=== PATIENT | male | born 1960 | race Caucasian/White ===

== ENCOUNTER 2020-05-01 01:12 | Inpatient (IN) | payer MEDICAID ==
[~2020-05-01] VITALS: Ht 177.8 cm; Wt 74.4 kg
[2020-05-01] MEDS ORDERED: ACETAMINOPHEN 325MG TABLET GT STA (01:39)
[2020-05-01 02:03] LABS: BASOPHILS % 0.6 % (0.0-2.0); EOSINOPHILS % 0.3 % (0.0-5.0); HEMATOCRIT. 27.6 % (42.0-52.0); HEMOGLOBIN. 9.3 g/dL (14.0-18.0); LYMPHOCYTES % 11.5 % (20.0-50.0); MEAN CORPUSCULAR HEMOGLOBIN 29.6 pg (28.0-32.0); MEAN CORPUSCULAR VOLUME 87.7 fL (80.0-94.0); MEAN PLATELET VOLUME 7.7 fl (7.4-10.4); MONOCYTES % 11.6 % (2.0-8.0); PLATELET 393 x1000/uL (130-400); RED BLOOD CELL COUNT 3.15 mill/uL (4.7-6.1); RED CELL DISTRIBUTION WIDTH 15.3 % (11.6-14.6)
[2020-05-01 02:10] LABS: CHLORIDE 101 mEq/L (98-107)
[2020-05-01 02:17] LABS: INR 1.2; PROTHROMBIN TIME 12.5 sec (9.6-11.0)
[2020-05-01] MEDS ORDERED: IOHEXOL-300 100 ML BOTTLE ONE (02:39)
[2020-05-01] MEDS ORDERED: VANCOMYCIN 1 G PREMIX 200 ML IV SCH (03:45)
[2020-05-01] MEDS ORDERED: PIPERACILLIN/TAZOBACTAM 3.375GM/50ML PREMIX IV SCH (03:45)
[2020-05-01] MEDS ORDERED: ENOXAPARIN 80MG/0.8ML SYR SUBCUT SCH (04:00)
[2020-05-01] MEDS ORDERED: NA PHOS,M-B/NA PHOS,DI-BA ENEMA 118ML PR SCH (04:00)
[2020-05-01 05:57] LABS: CLARITY URINE CLOUDY (CLEAR); COLOR URINE DARK YELLOW (YELLOW); KETONES URINE 1+ (NEGATIVE); LEUKOCYTE ESTERASE URINE 3+ (NEGATIVE); NITRITE URINE NEGATIVE (NEGATIVE); OCCULT BLOOD URINE 1+ (NEGATIVE); PH URINE 8.5 (4.5-8.0); PROTEIN URINE 2+ (NEGATIVE); SPECIFIC GRAVITY URINE 1.024 (1.005-1.030)
[2020-05-01 11:36] VITALS: BP 98/53
[2020-05-01] MEDS ORDERED: ONDANSETRON HCL 4MG/2ML INJ IV PRN (12:15)
[2020-05-01] MEDS: DOCUSATE SODIUM 250MG CAPSULE PO SCH (16:07)
[2020-05-01] MEDS: ACETAMINOPHEN 325MG TABLET PO PRN (16:07)
[2020-05-01] MEDS: PIPERACILLIN/TAZOBACTAM 3.375 G in DEXT 5% WATER 100 ML IV SCH ×2 (16:08→21:46)
[2020-05-01] MEDS: VANCOMYCIN 750 MG PREMIX 150 ML IV SCH (16:59)
[2020-05-01] MEDS ORDERED: LACTULOSE 20G/30ML UDC PO PRN (17:30)
[2020-05-01] MEDS ORDERED: CHOL40002 PO (19:18)
[2020-05-01] MEDS ORDERED: DIPH25CA83 PO (19:18)
[2020-05-01] MEDS ORDERED: ACET-2128 PO (19:18)
[2020-05-01] MEDS ORDERED: RIVA20TA PO (19:18)
[2020-05-01] MEDS ORDERED: MIRT15TA6 PO (19:18)
[2020-05-01] MEDS ORDERED: FAMO20TA8 PO (19:18)
[2020-05-01] MEDS ORDERED: ATOR40TA70 PO (19:18)
[2020-05-01] MEDS ORDERED: MIDO5TAB4 PO (19:18)
[2020-05-01] MEDS ORDERED: DOCU50LI25 PO (19:18)
[2020-05-01 20:00] VITALS: BP 97/59
[2020-05-02] VITALS: BP 97/59
[2020-05-02] MEDS: VANCOMYCIN 750 MG PREMIX 150 ML IV SCH ×4 (00:04→23:08)
[2020-05-02] MEDS: ACETAMINOPHEN 325MG TABLET PO PRN ×2 (00:05→10:00)
[2020-05-02] MEDS: PIPERACILLIN/TAZOBACTAM 3.375 G in DEXT 5% WATER 100 ML IV SCH ×4 (01:55→19:59)
[2020-05-02 04:00] VITALS: BP 98/50
[2020-05-02 08:16] LABS: BASOPHILS % 0.5 % (0.0-2.0); LYMPHOCYTES % 18.6 % (20.0-50.0); MEAN CORPUSCULAR HEMOGLOBIN 30.2 pg (28.0-32.0); MEAN CORPUSCULAR VOLUME 87.7 fL (80.0-94.0); MEAN PLATELET VOLUME 8.1 fl (7.4-10.4); MONOCYTES % 14.3 % (2.0-8.0); NEUTROPHILS % 66.6 % (40.0-76.0); PLATELET 339 x1000/uL (130-400); RED BLOOD CELL COUNT 2.97 mill/uL (4.7-6.1); RED CELL DISTRIBUTION WIDTH 15.2 % (11.6-14.6)
[2020-05-02 08:20] LABS: CHLORIDE 100 mEq/L (98-107)
[2020-05-02] MEDS ORDERED: POTASSIUM CHLORIDE 20MEQ TABLET SR PO NR (08:45)
[2020-05-02] MEDS: ENOXAPARIN 40MG/0.4ML SYR SUBCUT SCH (09:00)
[2020-05-02] MEDS: DOCUSATE SODIUM 250MG CAPSULE PO SCH (10:00)
[2020-05-02 12:00] VITALS: BP 110/59
[2020-05-02 16:00] VITALS: BP 96/48
[2020-05-02 20:00] VITALS: BP 105/46
[2020-05-03] VITALS: BP 108/55
[2020-05-03] MEDS: PIPERACILLIN/TAZOBACTAM 3.375 G in DEXT 5% WATER 100 ML IV SCH ×4 (03:57→21:00)
[2020-05-03 04:00] VITALS: BP 111/58
[2020-05-03] MEDS: VANCOMYCIN 750 MG PREMIX 150 ML IV SCH (06:10)
[2020-05-03 06:17] LABS: BASOPHILS % 0.3 % (0.0-2.0); EOSINOPHILS % 0.1 % (0.0-5.0); HEMATOCRIT. 26.2 % (42.0-52.0); LYMPHOCYTES % 13.3 % (20.0-50.0); MEAN CORPUSCULAR HEMOGLOBIN 29.8 pg (28.0-32.0); MEAN PLATELET VOLUME 8.3 fl (7.4-10.4); NEUTROPHILS % 78.3 % (40.0-76.0); PLATELET 282 x1000/uL (130-400); RED BLOOD CELL COUNT 3.01 mill/uL (4.7-6.1); RED CELL DISTRIBUTION WIDTH 15.5 % (11.6-14.6)
[2020-05-03 06:23] LABS: CHLORIDE 103 mEq/L (98-107)
[2020-05-03 08:00] VITALS: BP 150/60
[2020-05-03] MEDS ORDERED: POTASSIUM CHLORIDE INJ 40 MEQ in DEXT 5% WATER 250 ML IV NR (09:00)
[2020-05-03] MEDS: ENOXAPARIN 40MG/0.4ML SYR SUBCUT SCH (09:00)
[2020-05-03] MEDS: DOCUSATE SODIUM 250MG CAPSULE PO SCH ×2 (09:00→09:06)
[2020-05-03 12:00] VITALS: BP 152/66
[2020-05-03] MEDS ORDERED: POTASSIUM CHLORIDE 20MEQ TABLET SR PO NR (13:30)
[2020-05-03] MEDS: ACETAMINOPHEN 325MG TABLET PO PRN (14:00)
[2020-05-03 16:00] VITALS: BP 114/54
[2020-05-03 20:00] VITALS: BP 98/48
[2020-05-03] MEDS: VANCOMYCIN 1 G PREMIX 200 ML IV SCH (23:29)
[2020-05-04] VITALS: BP 138/64
[2020-05-04] MEDS: PIPERACILLIN/TAZOBACTAM 3.375 G in DEXT 5% WATER 100 ML IV SCH ×4 (01:27→20:03)
[2020-05-04 04:00] VITALS: BP_SYST 121; BP_SYST 124; BP_DIAS 60; BP_DIAS 66
[2020-05-04 08:00] VITALS: BP 145/62
[2020-05-04 08:11] LABS: BASOPHILS % 0.4 % (0.0-2.0); EOSINOPHILS % 0.2 % (0.0-5.0); HEMATOCRIT. 26.7 % (42.0-52.0); HEMOGLOBIN. 9.2 g/dL (14.0-18.0); LYMPHOCYTES % 20.1 % (20.0-50.0); MEAN CORPUSCULAR HEMOGLOBIN 29.9 pg (28.0-32.0); MEAN CORPUSCULAR VOLUME 87.3 fL (80.0-94.0); MEAN PLATELET VOLUME 8.6 fl (7.4-10.4); MONOCYTES % 7.8 % (2.0-8.0); NEUTROPHILS % 71.5 % (40.0-76.0); PLATELET 215 x1000/uL (130-400); RED BLOOD CELL COUNT 3.06 mill/uL (4.7-6.1); RED CELL DISTRIBUTION WIDTH 15.4 % (11.6-14.6)
[2020-05-04 08:33] LABS: CHLORIDE 104 mEq/L (98-107)
[2020-05-04] MEDS: DOCUSATE SODIUM 250MG CAPSULE PO SCH (09:16)
[2020-05-04] MEDS: ENOXAPARIN 40MG/0.4ML SYR SUBCUT SCH (09:16)
[2020-05-04 12:00] VITALS: BP 129/60
[2020-05-04 16:00] VITALS: BP 126/60
[2020-05-04] MEDS: VANCOMYCIN 1 G PREMIX 200 ML IV SCH (16:44)
[2020-05-04 20:00] VITALS: BP 101/52
[2020-05-05] VITALS: BP 138/64
[2020-05-05] MEDS: PIPERACILLIN/TAZOBACTAM 3.375 G in DEXT 5% WATER 100 ML IV SCH ×4 (02:32→20:05)
[2020-05-05 04:00] VITALS: BP 118/68
[2020-05-05 08:00] VITALS: BP 103/54
[2020-05-05] MEDS: DOCUSATE SODIUM 250MG CAPSULE PO SCH (11:22)
[2020-05-05] MEDS: ENOXAPARIN 40MG/0.4ML SYR SUBCUT SCH (11:22)
[2020-05-05 12:00] VITALS: BP 115/67
[2020-05-05] MEDS: VANCOMYCIN 750 MG PREMIX 150 ML IV SCH (14:07)
[2020-05-05 16:00] VITALS: BP 123/59
[2020-05-05 20:00] VITALS: BP 99/51
[2020-05-05 21:22] LABS: CHLORIDE 106 mEq/L (98-107)
[2020-05-05 21:24] LABS: BASOPHILS % 0.8 % (0.0-2.0); EOSINOPHILS % 0.8 % (0.0-5.0); HEMATOCRIT. 26.2 % (42.0-52.0); HEMOGLOBIN. 8.9 g/dL (14.0-18.0); LYMPHOCYTES % 36.7 % (20.0-50.0); MEAN CORPUSCULAR HEMOGLOBIN 29.8 pg (28.0-32.0); MEAN CORPUSCULAR VOLUME 87.7 fL (80.0-94.0); MEAN PLATELET VOLUME 9.3 fl (7.4-10.4); MONOCYTES % 10.3 % (2.0-8.0); NEUTROPHILS % 51.4 % (40.0-76.0); PLATELET 183 x1000/uL (130-400); RED BLOOD CELL COUNT 2.99 mill/uL (4.7-6.1); RED CELL DISTRIBUTION WIDTH 15.6 % (11.6-14.6)
[2020-05-06] VITALS: BP 117/55
[2020-05-06] MEDS: PIPERACILLIN/TAZOBACTAM 3.375 G in DEXT 5% WATER 100 ML IV SCH ×2 (01:54→09:36)
[2020-05-06 04:00] VITALS: BP 95/50
[2020-05-06 08:00] VITALS: BP 100/55
[2020-05-06] MEDS: ENOXAPARIN 40MG/0.4ML SYR SUBCUT SCH ×2 (09:36→10:02)
[2020-05-06] MEDS: DOCUSATE SODIUM 250MG CAPSULE PO SCH ×2 (09:36→09:37)
[2020-05-06] MEDS: VANCOMYCIN 750 MG PREMIX 150 ML IV SCH (09:59)
[2020-05-06 12:00] VITALS: BP 97/50
[2020-05-06 16:00] VITALS: BP 122/70
[2020-05-06] MEDS ORDERED: NYSTATIN POWDER 15GM TOP SCH (18:00)
[2020-05-06 20:00] VITALS: BP 133/78
[2020-05-07] VITALS: BP 139/71
[2020-05-07] MEDS: NYSTATIN POWDER 15GM TOP SCH ×3 (00:01→17:00)
[2020-05-07] MEDS: VANCOMYCIN 750 MG PREMIX 150 ML IV SCH ×2 (01:47→21:45)
[2020-05-07 04:00] VITALS: BP 101/60
[2020-05-07 06:32] LABS: BASOPHILS % 0.5 % (0.0-2.0); EOSINOPHILS % 2.7 % (0.0-5.0); HEMOGLOBIN. 10.5 g/dL (14.0-18.0); LYMPHOCYTES % 31.1 % (20.0-50.0); MEAN CORPUSCULAR HEMOGLOBIN 29.8 pg (28.0-32.0); MEAN PLATELET VOLUME 9.2 fl (7.4-10.4); MONOCYTES % 7.5 % (2.0-8.0); NEUTROPHILS % 58.2 % (40.0-76.0); PLATELET 208 x1000/uL (130-400); RED BLOOD CELL COUNT 3.52 mill/uL (4.7-6.1); RED CELL DISTRIBUTION WIDTH 15.6 % (11.6-14.6)
[2020-05-07 06:58] LABS: CHLORIDE 108 mEq/L (98-107)
[2020-05-07 08:00] VITALS: BP 133/78
[2020-05-07] MEDS: ZINC SULFATE 220 MG ( 50 ) CAPSULE PO SCH (08:13)
[2020-05-07] MEDS: ASCORBIC ACID 500 MG TABLET PO SCH (08:13)
[2020-05-07 12:00] VITALS: BP 139/71
[2020-05-07] MEDS ORDERED: POTASSIUM CHLORIDE 20MEQ TABLET SR PO SCH (12:00)
[2020-05-07 16:00] VITALS: BP 127/73
[2020-05-08] VITALS: BP 101/47
[2020-05-08 04:00] VITALS: BP 90/49
[2020-05-08 08:00] VITALS: BP 94/51
[2020-05-08] MEDS: NYSTATIN POWDER 15GM TOP SCH (09:00)
[2020-05-08 09:08] LABS: CHLORIDE 108 mEq/L (98-107)
[2020-05-08 09:33] LABS: BASOPHILS % 0.3 % (0.0-2.0); EOSINOPHILS % 0.6 % (0.0-5.0); LYMPHOCYTES % 21.9 % (20.0-50.0); MEAN CORPUSCULAR HEMOGLOBIN 30.3 pg (28.0-32.0); MEAN CORPUSCULAR VOLUME 86.5 fL (80.0-94.0); MEAN PLATELET VOLUME 9.4 fl (7.4-10.4); MONOCYTES % 11.6 % (2.0-8.0); NEUTROPHILS % 65.6 % (40.0-76.0); PLATELET 207 x1000/uL (130-400); RED BLOOD CELL COUNT 2.91 mill/uL (4.7-6.1); RED CELL DISTRIBUTION WIDTH 15.5 % (11.6-14.6)
[2020-05-08 10:30] LABS: HEMATOCRIT. 25.2 % (42.0-52.0); HEMOGLOBIN. 8.8 g/dL (14.0-18.0)
[2020-05-08] MEDS: ENOXAPARIN 40MG/0.4ML SYR SUBCUT SCH (10:40)
[2020-05-08] MEDS: DOCUSATE SODIUM 250MG CAPSULE PO SCH (10:41)
[2020-05-08] MEDS: ASCORBIC ACID 500 MG TABLET PO SCH (10:41)
[2020-05-08] MEDS: ZINC SULFATE 220 MG ( 50 ) CAPSULE PO SCH (10:41)
[2020-05-08] MEDS ORDERED: LIDOCAINE HCL/EPINEPHRINE 1%-EPI 1:100,000 20 ML VIAL INFIL NR (13:00)
[2020-05-08] MEDS ORDERED: SILVER NITRATE APPLICATOR STICK TOP NR (13:00)
[2020-05-08] MEDS ORDERED: VANCOMYCIN 1 G PREMIX 200 ML IV SCH (14:00)
[2020-05-08] MEDS: VANCOMYCIN 750 MG PREMIX 150 ML IV SCH (15:41)
[2020-05-08 16:00] VITALS: BP 109/60
[2020-05-08 20:00] VITALS: BP 118/64
[2020-05-09] VITALS: BP 118/71
[2020-05-09 04:00] VITALS: BP 92/36
[2020-05-09 08:00] VITALS: BP 103/43
[2020-05-09] MEDS: DOCUSATE SODIUM 250MG CAPSULE PO SCH (08:48)
[2020-05-09] MEDS: ZINC SULFATE 220 MG ( 50 ) CAPSULE PO SCH (08:48)
[2020-05-09] MEDS: ASCORBIC ACID 500 MG TABLET PO SCH (08:48)
[2020-05-09] MEDS: ENOXAPARIN 40MG/0.4ML SYR SUBCUT SCH (08:49)
[2020-05-09] MEDS: NYSTATIN POWDER 15GM TOP SCH ×2 (09:26→16:47)
[2020-05-09 11:48] VITALS: BP 114/56
[2020-05-09] MEDS ORDERED: ZINC220C2 PO (12:46)
[2020-05-09] MEDS ORDERED: SODI473S22 TOP (12:46)
[2020-05-09] MEDS: SODIUM HYPOCHLORITE 0.125% 473ML SOLUTION TOP SCH (12:54)
[2020-05-09 16:00] VITALS: BP 93/55
[2020-05-09 17:09] LABS: HEMATOCRIT 27.9 % (42.0-52.0); HEMOGLOBIN 9.4 g/dL (14.0-18.0); MEAN CORPUSCULAR HEMOGLOBIN 29.7 pg (28.0-32.0); MEAN CORPUSCULAR VOLUME 87.7 fL (80.0-94.0); PLATELET 242 x1000/uL (130-400); RED BLOOD CELL COUNT 3.18 mill/uL (4.7-6.1)
[2020-05-09 17:21] LABS: CHLORIDE 108 mEq/L (98-107)
[2020-05-10] VITALS: BP 122/59
[2020-05-10 04:00] VITALS: BP 104/57
[2020-05-10 06:09] LABS: BASOPHILS % 0.2 % (0.0-2.0); EOSINOPHILS % 1.1 % (0.0-5.0); HEMATOCRIT. 26.6 % (42.0-52.0); MEAN CORPUSCULAR HEMOGLOBIN 29.4 pg (28.0-32.0); MEAN CORPUSCULAR VOLUME 86.4 fL (80.0-94.0); MEAN PLATELET VOLUME 9.1 fl (7.4-10.4); MONOCYTES % 10.3 % (2.0-8.0); NEUTROPHILS % 77.4 % (40.0-76.0); PLATELET 243 x1000/uL (130-400); RED BLOOD CELL COUNT 3.08 mill/uL (4.7-6.1); RED CELL DISTRIBUTION WIDTH 15.7 % (11.6-14.6)
[2020-05-10 06:25] LABS: CHLORIDE 108 mEq/L (98-107)
[2020-05-10 08:00] VITALS: BP 121/69
[2020-05-10] MEDS: DOCUSATE SODIUM 250MG CAPSULE PO SCH (08:59)
[2020-05-10] MEDS: ASCORBIC ACID 500 MG TABLET PO SCH (08:59)
[2020-05-10] MEDS: ZINC SULFATE 220 MG ( 50 ) CAPSULE PO SCH (08:59)
[2020-05-10] MEDS: ENOXAPARIN 40MG/0.4ML SYR SUBCUT SCH (08:59)
[2020-05-10] MEDS: SODIUM HYPOCHLORITE 0.125% 473ML SOLUTION TOP SCH (09:00)
[2020-05-10] MEDS: NYSTATIN POWDER 15GM TOP SCH ×2 (09:01→16:34)
[2020-05-10 12:00] VITALS: BP 95/48
[2020-05-10 16:00] VITALS: BP 119/59
[2020-05-10 20:00] VITALS: BP 135/60
[2020-05-11] VITALS: BP 135/62
[2020-05-11 04:00] VITALS: BP 146/64
[2020-05-11] MEDS: ACETAMINOPHEN 325MG TABLET PO PRN ×2 (04:52→12:08)
[2020-05-11 07:33] LABS: BASOPHILS % 0.2 % (0.0-2.0); EOSINOPHILS % 1.5 % (0.0-5.0); HEMATOCRIT. 24.9 % (42.0-52.0); HEMOGLOBIN. 8.4 g/dL (14.0-18.0); LYMPHOCYTES % 11.4 % (20.0-50.0); MEAN CORPUSCULAR HEMOGLOBIN 29.7 pg (28.0-32.0); MEAN CORPUSCULAR VOLUME 88.4 fL (80.0-94.0); MEAN PLATELET VOLUME 9.5 fl (7.4-10.4); MONOCYTES % 10.4 % (2.0-8.0); NEUTROPHILS % 76.5 % (40.0-76.0); PLATELET 237 x1000/uL (130-400); RED BLOOD CELL COUNT 2.82 mill/uL (4.7-6.1); RED CELL DISTRIBUTION WIDTH 15.9 % (11.6-14.6)
[2020-05-11 08:00] VITALS: BP 113/60
[2020-05-11] MEDS: NYSTATIN POWDER 15GM TOP SCH ×2 (09:00→17:00)
[2020-05-11] MEDS: ENOXAPARIN 40MG/0.4ML SYR SUBCUT SCH ×2 (09:00→10:21)
[2020-05-11] MEDS: ZINC SULFATE 220 MG ( 50 ) CAPSULE PO SCH (10:21)
[2020-05-11] MEDS: DOCUSATE SODIUM 250MG CAPSULE PO SCH (10:21)
[2020-05-11] MEDS: ASCORBIC ACID 500 MG TABLET PO SCH (10:21)
[2020-05-11] MEDS: SODIUM HYPOCHLORITE 0.125% 473ML SOLUTION TOP SCH (10:35)
[2020-05-11 12:00] VITALS: BP 90/51
[2020-05-11 16:00] VITALS: BP 162/66
[2020-05-11] MEDS: HYDROCODONE/ACETAMINOPHEN 5/325MG TABLET GT PRN ×2 (16:46→22:36)
[2020-05-11 20:00] VITALS: BP 132/89
[2020-05-11] MEDS ORDERED: LIDOCAINE HCL 1% 20ML VIAL (Pyxis) INJ INFIL NR (21:00)
[2020-05-11] MEDS ORDERED: METHYLPREDNISOLONE ACETATE 40MG/ML VIAL IM NR (22:00)
[2020-05-12] VITALS: BP 166/79
[2020-05-12 04:00] VITALS: BP 126/67
[2020-05-12] MEDS: HYDROCODONE/ACETAMINOPHEN 5/325MG TABLET GT PRN (05:49)
[2020-05-12 08:00] VITALS: BP 147/74
[2020-05-12] MEDS: NYSTATIN POWDER 15GM TOP SCH ×2 (09:00→17:00)
[2020-05-12] MEDS: ASCORBIC ACID 500 MG TABLET PO SCH (10:03)
[2020-05-12] MEDS: ZINC SULFATE 220 MG ( 50 ) CAPSULE PO SCH (10:03)
[2020-05-12] MEDS: ENOXAPARIN 40MG/0.4ML SYR SUBCUT SCH (10:03)
[2020-05-12] MEDS: DOCUSATE SODIUM SUGAR FREE 100MG/10ML UDC GT SCH (10:04)
[2020-05-12] MEDS: SODIUM HYPOCHLORITE 0.125% 473ML SOLUTION TOP SCH (10:15)
[2020-05-12 12:00] VITALS: BP 148/88
[2020-05-12 16:00] VITALS: BP 106/65
[2020-05-12 20:00] VITALS: BP_SYST 140; BP_DIAS 71; BP_DIAS 91
[2020-05-12] MEDS: ACETAMINOPHEN 325MG TABLET PO PRN (20:06)
[2020-05-13] VITALS: BP 125/70
[2020-05-13 04:00] VITALS: BP 134/64
[2020-05-13 08:00] VITALS: BP 131/72
[2020-05-13] MEDS: ZINC SULFATE 220 MG ( 50 ) CAPSULE PO SCH (08:53)
[2020-05-13] MEDS: DOCUSATE SODIUM SUGAR FREE 100MG/10ML UDC GT SCH (08:53)
[2020-05-13] MEDS: ASCORBIC ACID 500 MG TABLET PO SCH (08:53)
[2020-05-13] MEDS: SODIUM HYPOCHLORITE 0.125% 473ML SOLUTION TOP SCH (08:55)
[2020-05-13] MEDS: NYSTATIN POWDER 15GM TOP SCH ×2 (08:55→17:00)
[2020-05-13] MEDS: ENOXAPARIN 40MG/0.4ML SYR SUBCUT SCH (09:00)
[2020-05-13 12:00] VITALS: BP_SYST 119; BP_SYST 145; BP_DIAS 54; BP_DIAS 71
[2020-05-13 16:00] VITALS: BP 119/54
[2020-05-13 20:00] VITALS: BP 148/67
[2020-05-14] VITALS (7 sets, daily range): BP systolic 94–175; BP diastolic 54–77
[2020-05-14] MEDS: DOCUSATE SODIUM SUGAR FREE 100MG/10ML UDC GT SCH (09:00)
[2020-05-14] MEDS: ZINC SULFATE 220 MG ( 50 ) CAPSULE PO SCH (09:00)
[2020-05-14] MEDS: NYSTATIN POWDER 15GM TOP SCH ×2 (09:00→22:10)
[2020-05-14] MEDS: ASCORBIC ACID 500 MG TABLET PO SCH (09:00)
[2020-05-14] MEDS: SODIUM HYPOCHLORITE 0.125% 473ML SOLUTION TOP SCH (09:00)
[2020-05-14] MEDS: ENOXAPARIN 40MG/0.4ML SYR SUBCUT SCH (09:00)
[2020-05-15 00:12] VITALS: BP 98/56
[2020-05-15 04:00] VITALS: BP 89/42
[2020-05-15] MEDS: ZINC SULFATE 220 MG ( 50 ) CAPSULE PO SCH (10:51)
[2020-05-15] MEDS: ASCORBIC ACID 500 MG TABLET PO SCH (10:51)
[2020-05-15] MEDS: ENOXAPARIN 40MG/0.4ML SYR SUBCUT SCH (10:51)
[2020-05-15] MEDS: NYSTATIN POWDER 15GM TOP SCH ×2 (10:57→18:17)
[2020-05-15] MEDS: DOCUSATE SODIUM SUGAR FREE 100MG/10ML UDC GT SCH (13:32)
[2020-05-15] MEDS: SODIUM HYPOCHLORITE 0.125% 473ML SOLUTION TOP SCH (18:16)
[2020-05-15 20:00] VITALS: BP 106/58
[2020-05-16] VITALS (10 sets, daily range): BP systolic 71–141; BP diastolic 48–77
[2020-05-16] MEDS: DOCUSATE SODIUM SUGAR FREE 100MG/10ML UDC GT SCH (08:59)
[2020-05-16] MEDS: ZINC SULFATE 220 MG ( 50 ) CAPSULE PO SCH (08:59)
[2020-05-16] MEDS: ASCORBIC ACID 500 MG TABLET PO SCH (08:59)
[2020-05-16] MEDS: ENOXAPARIN 40MG/0.4ML SYR SUBCUT SCH (09:00)
[2020-05-16] MEDS: SODIUM HYPOCHLORITE 0.125% 473ML SOLUTION TOP SCH (10:25)
[2020-05-16] MEDS: NYSTATIN POWDER 15GM TOP SCH ×2 (10:25→17:58)
[2020-05-16] MEDS: ACETAMINOPHEN 325MG TABLET PO PRN ×2 (11:01→22:26)
[2020-05-16 20:01] LABS: BASOPHILS % 0.3 % (0.0-2.0); EOSINOPHILS % 0.4 % (0.0-5.0); HEMOGLOBIN. 9.2 g/dL (14.0-18.0); LYMPHOCYTES % 8.7 % (20.0-50.0); MEAN CORPUSCULAR HEMOGLOBIN 29.8 pg (28.0-32.0); MEAN CORPUSCULAR VOLUME 87.1 fL (80.0-94.0); MEAN PLATELET VOLUME 8.8 fl (7.4-10.4); MONOCYTES % 3.7 % (2.0-8.0); NEUTROPHILS % 86.9 % (40.0-76.0); PLATELET 300 x1000/uL (130-400); RED CELL DISTRIBUTION WIDTH 16.4 % (11.6-14.6)
[2020-05-16 20:10] LABS: CHLORIDE 109 mEq/L (98-107)
[2020-05-16] MEDS ORDERED: ZOLPIDEM TARTRATE 5MG TABLET PO PRN (22:30)
[2020-05-16] MEDS ORDERED: DEXAMETHASONE 4MG/ML 1ML VIAL IV SCH (23:00)
[2020-05-17] VITALS: BP 100/70
[2020-05-17] MEDS: AZITHROMYCIN 500 MG in DEXT 5% WATER 250 ML IV SCH (00:58)
[2020-05-17 04:00] VITALS: BP 128/80
[2020-05-17 08:00] VITALS: BP 101/60
[2020-05-17] MEDS: ASCORBIC ACID 500 MG TABLET PO SCH (09:16)
[2020-05-17] MEDS: DOCUSATE SODIUM SUGAR FREE 100MG/10ML UDC GT SCH (09:16)
[2020-05-17] MEDS: ZINC SULFATE 220 MG ( 50 ) CAPSULE PO SCH (09:16)
[2020-05-17] MEDS: ENOXAPARIN 40MG/0.4ML SYR SUBCUT SCH (09:16)
[2020-05-17 12:00] VITALS: BP 123/75
[2020-05-17 16:00] VITALS: BP 129/54
[2020-05-17] MEDS: NYSTATIN POWDER 15GM TOP SCH (18:03)
[2020-05-17] MEDS: SODIUM HYPOCHLORITE 0.125% 473ML SOLUTION TOP SCH (18:03)
[2020-05-17 20:00] VITALS: BP 124/64
[2020-05-18] VITALS: BP 105/56
[2020-05-18] MEDS: AZITHROMYCIN 500 MG in DEXT 5% WATER 250 ML IV SCH (00:44)
[2020-05-18 04:00] VITALS: BP 115/58
[2020-05-18 08:00] VITALS: BP 137/71
[2020-05-18] MEDS: ENOXAPARIN 40MG/0.4ML SYR SUBCUT SCH (08:26)
[2020-05-18] MEDS: ASCORBIC ACID 500 MG TABLET PO SCH (08:26)
[2020-05-18] MEDS: ZINC SULFATE 220 MG ( 50 ) CAPSULE PO SCH (08:26)
[2020-05-18] MEDS: DOCUSATE SODIUM SUGAR FREE 100MG/10ML UDC GT SCH (08:27)
[2020-05-18] MEDS: NYSTATIN POWDER 15GM TOP SCH ×2 (08:29→17:49)
[2020-05-18] MEDS: SODIUM HYPOCHLORITE 0.125% 473ML SOLUTION TOP SCH (08:29)
[2020-05-18 12:00] VITALS: BP 128/73
[2020-05-18 16:00] VITALS: BP 134/70
[2020-05-18 20:00] VITALS: BP 128/58
[2020-05-18] MEDS ORDERED: AZITHROMYCIN 500 MG TABLET PO SCH (21:00)
[2020-05-19] VITALS: BP 90/53
[2020-05-19 04:00] VITALS: BP 85/45
[2020-05-19 08:00] VITALS: BP 116/58
[2020-05-19] MEDS: NYSTATIN POWDER 15GM TOP SCH ×2 (09:35→17:00)
[2020-05-19] MEDS: SODIUM HYPOCHLORITE 0.125% 473ML SOLUTION TOP SCH (09:35)
[2020-05-19] MEDS: ENOXAPARIN 40MG/0.4ML SYR SUBCUT SCH (09:47)
[2020-05-19] MEDS: ASCORBIC ACID 500 MG TABLET PO SCH (09:48)
[2020-05-19] MEDS: DOCUSATE SODIUM SUGAR FREE 100MG/10ML UDC GT SCH (09:48)
[2020-05-19] MEDS: ZINC SULFATE 220 MG ( 50 ) CAPSULE PO SCH (09:48)
[2020-05-19 12:00] VITALS: BP 130/60
[2020-05-19 16:00] VITALS: BP 100/56
[2020-05-19 20:00] VITALS: BP 101/59
[2020-05-20] VITALS: BP 103/56
[2020-05-20 04:00] VITALS: BP 109/58
[2020-05-20 08:00] VITALS: BP 110/55
[2020-05-20] MEDS: ZINC SULFATE 220 MG ( 50 ) CAPSULE PO SCH (09:00)
[2020-05-20] MEDS: NYSTATIN POWDER 15GM TOP SCH ×2 (09:00→17:00)
[2020-05-20] MEDS: SODIUM HYPOCHLORITE 0.125% 473ML SOLUTION TOP SCH (09:00)
[2020-05-20] MEDS: ENOXAPARIN 40MG/0.4ML SYR SUBCUT SCH (10:13)
[2020-05-20] MEDS: DOCUSATE SODIUM SUGAR FREE 100MG/10ML UDC GT SCH (10:14)
[2020-05-20] MEDS: ASCORBIC ACID 500 MG TABLET PO SCH (10:23)
[2020-05-20 12:00] VITALS: BP 99/58
[2020-05-20 16:00] VITALS: BP 97/50
[2020-05-20 20:00] VITALS: BP 109/61
[2020-05-21] VITALS: BP 132/51
[2020-05-21 04:00] VITALS: BP 147/72
[2020-05-21 08:00] VITALS: BP 150/73
[2020-05-21] MEDS: ZINC SULFATE 220 MG ( 50 ) CAPSULE PO SCH (08:49)
[2020-05-21] MEDS: DOCUSATE SODIUM SUGAR FREE 100MG/10ML UDC GT SCH (08:49)
[2020-05-21] MEDS: ASCORBIC ACID 500 MG TABLET PO SCH (08:49)
[2020-05-21] MEDS: ENOXAPARIN 40MG/0.4ML SYR SUBCUT SCH (08:50)
[2020-05-21] MEDS: NYSTATIN POWDER 15GM TOP SCH ×2 (08:53→17:09)
[2020-05-21] MEDS: SODIUM HYPOCHLORITE 0.125% 473ML SOLUTION TOP SCH (08:53)
[2020-05-21 12:00] VITALS: BP 162/74
[2020-05-21] MEDS: CLONIDINE 0.1MG TABLET PO PRN (14:27)
[2020-05-21 16:00] VITALS: BP 129/72
[2020-05-21 20:00] VITALS: BP 161/73
[2020-05-22] VITALS: BP 156/72
[2020-05-22 04:00] VITALS: BP 118/79
[2020-05-22 08:00] VITALS: BP 135/76
[2020-05-22] MEDS: ASCORBIC ACID 500 MG TABLET PO SCH (09:17)
[2020-05-22] MEDS: ZINC SULFATE 220 MG ( 50 ) CAPSULE PO SCH (09:17)
[2020-05-22] MEDS: DOCUSATE SODIUM SUGAR FREE 100MG/10ML UDC GT SCH (09:17)
[2020-05-22] MEDS: ENOXAPARIN 40MG/0.4ML SYR SUBCUT SCH (09:17)
[2020-05-22] MEDS: NYSTATIN POWDER 15GM TOP SCH ×2 (09:18→17:14)
[2020-05-22] MEDS: SODIUM HYPOCHLORITE 0.125% 473ML SOLUTION TOP SCH (09:18)
[2020-05-22 12:00] VITALS: BP 147/75
[2020-05-22 16:00] VITALS: BP 140/62
[2020-05-22 20:00] VITALS: BP 179/74
[2020-05-23] VITALS: BP 163/79
[2020-05-23] MEDS: CLONIDINE 0.1MG TABLET PO PRN (03:09)
[2020-05-23 04:00] VITALS: BP 142/77
[2020-05-23 08:00] VITALS: BP 108/72
[2020-05-23] MEDS: DOCUSATE SODIUM SUGAR FREE 100MG/10ML UDC GT SCH (11:09)
[2020-05-23] MEDS: ZINC SULFATE 220 MG ( 50 ) CAPSULE PO SCH (11:10)
[2020-05-23] MEDS: ASCORBIC ACID 500 MG TABLET PO SCH (11:10)
[2020-05-23] MEDS: ENOXAPARIN 40MG/0.4ML SYR SUBCUT SCH (11:11)
[2020-05-23] MEDS: NYSTATIN POWDER 15GM TOP SCH ×2 (11:12→17:37)
[2020-05-23] MEDS: SODIUM HYPOCHLORITE 0.125% 473ML SOLUTION TOP SCH (11:12)
[2020-05-23 12:00] VITALS: BP 124/73
[2020-05-23 16:00] VITALS: BP 115/71
[2020-05-23 19:57] LABS: CHLORIDE 110 mEq/L (98-107)
[2020-05-23 20:00] VITALS: BP 102/64
[2020-05-23 20:14] LABS: HEMATOCRIT. 27.2 % (42.0-52.0); MEAN CORPUSCULAR HEMOGLOBIN 29.4 pg (28.0-32.0); MEAN PLATELET VOLUME 8.3 fl (7.4-10.4); PLATELET 250 x1000/uL (130-400); RED BLOOD CELL COUNT 3.06 mill/uL (4.7-6.1); RED CELL DISTRIBUTION WIDTH 16.8 % (11.6-14.6)
[2020-05-23 22:42] LABS: PLATELET ESTIMATE NORMAL
[2020-05-24] VITALS: BP 121/76
[2020-05-24 04:00] VITALS: BP 115/62
[2020-05-24 08:00] VITALS: BP 84/49
[2020-05-24 12:00] VITALS: BP 109/61
[2020-05-24] MEDS: ASCORBIC ACID 500 MG TABLET PO SCH (12:00)
[2020-05-24] MEDS: ZINC SULFATE 220 MG ( 50 ) CAPSULE PO SCH (12:00)
[2020-05-24] MEDS: ENOXAPARIN 40MG/0.4ML SYR SUBCUT SCH (12:00)
[2020-05-24] MEDS: DOCUSATE SODIUM SUGAR FREE 100MG/10ML UDC GT SCH (12:00)
[2020-05-24] MEDS: SODIUM HYPOCHLORITE 0.125% 473ML SOLUTION TOP SCH (12:00)
[2020-05-24] MEDS: NYSTATIN POWDER 15GM TOP SCH ×2 (12:01→17:00)
[2020-05-24 16:00] VITALS: BP 115/80
[2020-05-24 20:00] VITALS: BP 110/59
[2020-05-25] VITALS: BP 100/61
[2020-05-25 04:00] VITALS: BP 125/74
[2020-05-25 08:00] VITALS: BP 93/57
[2020-05-25] MEDS: ASCORBIC ACID 500 MG TABLET PO SCH (09:00)
[2020-05-25] MEDS: DOCUSATE SODIUM SUGAR FREE 100MG/10ML UDC GT SCH (10:02)
[2020-05-25] MEDS: ENOXAPARIN 40MG/0.4ML SYR SUBCUT SCH (10:02)
[2020-05-25] MEDS: ZINC SULFATE 220 MG ( 50 ) CAPSULE PO SCH (10:02)
[2020-05-25] MEDS: NYSTATIN POWDER 15GM TOP SCH ×2 (10:03→18:50)
[2020-05-25] MEDS: SODIUM HYPOCHLORITE 0.125% 473ML SOLUTION TOP SCH (10:03)
[2020-05-25 12:00] VITALS: BP 117/70
[2020-05-25 16:00] VITALS: BP 121/62
[2020-05-25 20:00] VITALS: BP 114/63
[2020-05-26] VITALS: BP 94/41
[2020-05-26 08:00] VITALS: BP 121/54
[2020-05-26] MEDS: NYSTATIN POWDER 15GM TOP SCH ×2 (09:00→18:23)
[2020-05-26] MEDS: ZINC SULFATE 220 MG ( 50 ) CAPSULE PO SCH (09:47)
[2020-05-26] MEDS: ENOXAPARIN 40MG/0.4ML SYR SUBCUT SCH (09:47)
[2020-05-26] MEDS: DOCUSATE SODIUM SUGAR FREE 100MG/10ML UDC GT SCH (09:47)
[2020-05-26] MEDS: ASCORBIC ACID 500 MG TABLET PO SCH (09:47)
[2020-05-26 12:00] VITALS: BP 148/71
[2020-05-26 16:00] VITALS: BP 147/67
[2020-05-26] MEDS: SODIUM HYPOCHLORITE 0.125% 473ML SOLUTION TOP SCH (18:22)
[2020-05-26 20:00] VITALS: BP 158/62
[2020-05-27] VITALS: BP 136/85
[2020-05-27 04:00] VITALS: BP 96/62
[2020-05-27 08:00] VITALS: BP 80/46
[2020-05-27] MEDS: ZINC SULFATE 220 MG ( 50 ) CAPSULE PO SCH (10:01)
[2020-05-27] MEDS: DOCUSATE SODIUM SUGAR FREE 100MG/10ML UDC GT SCH (10:01)
[2020-05-27] MEDS: ENOXAPARIN 40MG/0.4ML SYR SUBCUT SCH (10:02)
[2020-05-27] MEDS: SODIUM HYPOCHLORITE 0.125% 473ML SOLUTION TOP SCH (10:02)
[2020-05-27] MEDS: NYSTATIN POWDER 15GM TOP SCH ×2 (10:03→17:51)
[2020-05-27] MEDS: ASCORBIC ACID 500 MG TABLET PO SCH (11:05)
[2020-05-27 12:00] VITALS: BP 91/53
[2020-05-27 16:00] VITALS: BP 98/65
[2020-05-27 20:00] VITALS: BP 94/58
[2020-05-28] VITALS: BP 103/67
[2020-05-28 04:00] VITALS: BP 107/68
[2020-05-28 06:56] LABS: CHLORIDE 112 mEq/L (98-107)
[2020-05-28 07:10] LABS: HEMATOCRIT. 25.4 % (42.0-52.0); HEMOGLOBIN. 8.3 g/dL (14.0-18.0); MEAN CORPUSCULAR HEMOGLOBIN 29.1 pg (28.0-32.0); MEAN CORPUSCULAR VOLUME 88.7 fL (80.0-94.0); MEAN PLATELET VOLUME 9.3 fl (7.4-10.4); PLATELET 203 x1000/uL (130-400); RED BLOOD CELL COUNT 2.86 mill/uL (4.7-6.1); RED CELL DISTRIBUTION WIDTH 17.1 % (11.6-14.6)
[2020-05-28 08:00] VITALS: BP 96/52
[2020-05-28] MEDS: ZINC SULFATE 220 MG ( 50 ) CAPSULE PO SCH (09:00)
[2020-05-28] MEDS: ASCORBIC ACID 500 MG TABLET PO SCH (10:37)
[2020-05-28] MEDS: ENOXAPARIN 40MG/0.4ML SYR SUBCUT SCH (10:38)
[2020-05-28] MEDS: DOCUSATE SODIUM SUGAR FREE 100MG/10ML UDC GT SCH (10:38)
[2020-05-28] MEDS: NYSTATIN POWDER 15GM TOP SCH ×2 (11:45→16:16)
[2020-05-28] MEDS: SODIUM HYPOCHLORITE 0.125% 473ML SOLUTION TOP SCH (11:45)
[2020-05-28 12:00] VITALS: BP 101/62
[2020-05-28] MEDS ORDERED: ALBUTEROL (0.083%) 2.5MG/3ML NEB HHN SCH (12:15)
[2020-05-28] MEDS ORDERED: ACETYLCYSTEINE 100MG/ML 10% VIAL 4ML INH SCH (14:00)
[2020-05-28 16:37] LABS: BG BASE EXCESS -2.2 mmol/L (-2.0-2.0); BG CARBOXYHEMOGLOBIN 0.3 % (0.5-1.5); BG FRACTION INSPIRED OXYGEN 35; BG HCO3 ACT 22.5 mmol/L (22.0-26.0); BG METHEMOGLOBIN 0.3 % (0.0-1.5); BG OXYHEMOGLOBIN 92.4 % (94.0-97.0); BG PCO2 38.2 mmHg (35.0-45.0); BG PH 7.388 (7.350-7.450); BG PO2 68.5 mmHg (75.0-100.0); BG SAMPLE SITE RIGHT RADIAL; BG TOTAL HEMOGLOBIN 8.8 g/dL (12.0-18.0); BG VENT MODE COOL AEROSOL
[2020-05-28 17:00] VITALS: BP 116/37
[2020-05-28] MEDS ORDERED: ALBUTEROL 6.7GM HFA INHALER ORI PRN (17:30)
[2020-05-28] MEDS: AZITHROMYCIN 500 MG TABLET PO SCH (19:13)
[2020-05-28] MEDS: DEXAMETHASONE 10 MG/ML VIAL IV SCH (19:14)
[2020-05-28 20:00] VITALS: BP 103/52
[2020-05-28 21:41] LABS: PLATELET ESTIMATE NORMAL
[2020-05-29] VITALS: BP_SYST 113; BP_SYST 99; BP_DIAS 62
[2020-05-29] MEDS: CEFTRIAXONE 1,000 MG in DEXTROSE 5% WATER 50 ML IV SCH ×2 (00:49→21:45)
[2020-05-29 04:00] VITALS: BP 110/62
[2020-05-29 07:30] LABS: HEMATOCRIT. 28.3 % (42.0-52.0); HEMOGLOBIN. 9.1 g/dL (14.0-18.0); MEAN CORPUSCULAR HEMOGLOBIN 28.8 pg (28.0-32.0); MEAN CORPUSCULAR VOLUME 89.7 fL (80.0-94.0); MEAN PLATELET VOLUME 9.3 fl (7.4-10.4); PLATELET 183 x1000/uL (130-400); RED BLOOD CELL COUNT 3.15 mill/uL (4.7-6.1); RED CELL DISTRIBUTION WIDTH 17.4 % (11.6-14.6)
[2020-05-29 07:41] LABS: CHLORIDE 111 mEq/L (98-107)
[2020-05-29 08:00] VITALS: BP 124/77
[2020-05-29] MEDS: ASCORBIC ACID 500 MG TABLET PO SCH (09:54)
[2020-05-29] MEDS: ZINC SULFATE 220 MG ( 50 ) CAPSULE PO SCH (09:54)
[2020-05-29] MEDS: AZITHROMYCIN 500 MG TABLET PO SCH (09:54)
[2020-05-29] MEDS: DEXAMETHASONE 10 MG/ML VIAL IV SCH (09:54)
[2020-05-29] MEDS: DOCUSATE SODIUM SUGAR FREE 100MG/10ML UDC GT SCH (09:59)
[2020-05-29] MEDS: ENOXAPARIN 40MG/0.4ML SYR SUBCUT SCH (09:59)
[2020-05-29] MEDS: SODIUM HYPOCHLORITE 0.125% 473ML SOLUTION TOP SCH (10:00)
[2020-05-29] MEDS: NYSTATIN POWDER 15GM TOP SCH ×2 (10:00→16:45)
[2020-05-29 12:00] VITALS: BP 92/50
[2020-05-29 16:00] VITALS: BP 100/47
[2020-05-29 17:56] LABS: NUCLEATED RED BLOOD CELLS 1 /100 WBC; PLATELET ESTIMATE NORMAL
[2020-05-29 20:00] VITALS: BP 95/58
[2020-05-30] VITALS: BP 99/60
[2020-05-30 04:00] VITALS: BP 101/53
[2020-05-30 08:00] VITALS: BP 87/43
[2020-05-30 09:39] LABS: HEMATOCRIT. 24.1 % (42.0-52.0); HEMOGLOBIN. 7.8 g/dL (14.0-18.0); MEAN CORPUSCULAR VOLUME 89.3 fL (80.0-94.0); MEAN PLATELET VOLUME 9.1 fl (7.4-10.4); PLATELET 184 x1000/uL (130-400); RED CELL DISTRIBUTION WIDTH 17.6 % (11.6-14.6)
[2020-05-30 10:11] LABS: CHLORIDE 113 mEq/L (98-107)
[2020-05-30] MEDS: ZINC SULFATE 220 MG ( 50 ) CAPSULE PO SCH (10:31)
[2020-05-30] MEDS: AZITHROMYCIN 500 MG TABLET PO SCH (10:32)
[2020-05-30] MEDS: DOCUSATE SODIUM SUGAR FREE 100MG/10ML UDC GT SCH (10:32)
[2020-05-30] MEDS: ENOXAPARIN 40MG/0.4ML SYR SUBCUT SCH (10:32)
[2020-05-30] MEDS: ASCORBIC ACID 500 MG TABLET PO SCH (10:33)
[2020-05-30] MEDS: NYSTATIN POWDER 15GM TOP SCH ×2 (10:49→17:49)
[2020-05-30] MEDS: SODIUM HYPOCHLORITE 0.125% 473ML SOLUTION TOP SCH (10:50)
[2020-05-30] MEDS: DEXAMETHASONE 10 MG/ML VIAL IV SCH (10:53)
[2020-05-30 11:00] VITALS: BP 95/45
[2020-05-30 16:00] VITALS: BP 100/58
[2020-05-30 16:30] LABS: PLATELET ESTIMATE NORMAL
[2020-05-30 20:00] VITALS: BP 95/56
[2020-05-30] MEDS: CEFTRIAXONE 1,000 MG in DEXTROSE 5% WATER 50 ML IV SCH (20:17)
[2020-05-31] VITALS (7 sets, daily range): BP systolic 90–113; BP diastolic 42–66
[2020-05-31] MEDS: ASCORBIC ACID 500 MG TABLET PO SCH (09:00)
[2020-05-31] MEDS: DOCUSATE SODIUM SUGAR FREE 100MG/10ML UDC GT SCH (09:00)
[2020-05-31] MEDS: ENOXAPARIN 40MG/0.4ML SYR SUBCUT SCH (10:00)
[2020-05-31] MEDS: ZINC SULFATE 220 MG ( 50 ) CAPSULE PO SCH (10:01)
[2020-05-31] MEDS: AZITHROMYCIN 500 MG TABLET PO SCH (10:01)
[2020-05-31] MEDS: SODIUM HYPOCHLORITE 0.125% 473ML SOLUTION TOP SCH (10:01)
[2020-05-31] MEDS: DEXAMETHASONE 10 MG/ML VIAL IV SCH (10:01)
[2020-05-31] MEDS: NYSTATIN POWDER 15GM TOP SCH ×2 (10:58→18:03)
[2020-05-31] MEDS: CEFTRIAXONE 1,000 MG in DEXTROSE 5% WATER 50 ML IV SCH (21:24)
[2020-06-01] VITALS (82 sets, daily range): BP systolic 49–160; BP diastolic 16–104
[2020-06-01] MEDS ORDERED: PHENYLEPHRINE 100 MG in SODIUM CHLORIDE 0.9% 240 ML IV PRN (07:30)
[2020-06-01] MEDS ORDERED: SODIUM CHLORIDE 0.9% 1,000 ML IV SCH (08:00)
[2020-06-01] MEDS ORDERED: MIDODRINE HCL 5MG TABLET PO SCH (09:00)
[2020-06-01] MEDS: SODIUM HYPOCHLORITE 0.125% 473ML SOLUTION TOP SCH (09:00)
[2020-06-01] MEDS: NYSTATIN POWDER 15GM TOP SCH ×2 (09:00→17:00)
[2020-06-01] MEDS: NOREPINEPHRINE 32 MG in SODIUM CHLORIDE 0.9% 218 ML IV PRN (09:02)
[2020-06-01] MEDS: FENTANYL CITRATE/PF 2,500 MCG in SODIUM CHLORIDE 0.9% 200 ML IV PRN (09:03)
[2020-06-01 10:38] LABS: CHLORIDE 115 mEq/L (98-107)
[2020-06-01] MEDS: ZINC SULFATE 220 MG ( 50 ) CAPSULE PO SCH (11:06)
[2020-06-01] MEDS: ASCORBIC ACID 500 MG TABLET PO SCH (11:06)
[2020-06-01] MEDS: DEXAMETHASONE 10 MG/ML VIAL IV SCH (11:06)
[2020-06-01] MEDS: PANTOPRAZOLE SODIUM 40 MG/VIAL IV SCH (11:07)
[2020-06-01] MEDS: DOCUSATE SODIUM SUGAR FREE 100MG/10ML UDC GT SCH (11:11)
[2020-06-01 11:43] LABS: HEMATOCRIT. 30.8 % (42.0-52.0); HEMOGLOBIN. 9.8 g/dL (14.0-18.0); MEAN CORPUSCULAR HEMOGLOBIN 29.1 pg (28.0-32.0); MEAN CORPUSCULAR VOLUME 91.9 fL (80.0-94.0); PLATELET 304 x1000/uL (130-400); RED BLOOD CELL COUNT 3.35 mill/uL (4.7-6.1); RED CELL DISTRIBUTION WIDTH 20.3 % (11.6-14.6)
[2020-06-01 11:49] LABS: BG BASE EXCESS -12.7 mmol/L (-2.0-2.0); BG CARBOXYHEMOGLOBIN 0.3 % (0.5-1.5); BG DEOXYHEMOGLOBIN 4.7 % (0.0-5.0); BG FRACTION INSPIRED OXYGEN 100; BG HCO3 ACT 16.1 mmol/L (22.0-26.0); BG METHEMOGLOBIN 0.3 % (0.0-1.5); BG OXYGEN SATURATION 95.3 % (92.0-98.5); BG OXYHEMOGLOBIN 94.7 % (94.0-97.0); BG PCO2 51.7 mmHg (35.0-45.0); BG TOTAL HEMOGLOBIN 7.8 g/dL (12.0-18.0); BG TOTAL RESPIRATORY RATE 21 b/min; BG VENT MODE VENT
[2020-06-01] MEDS ORDERED: SODIUM BICARBONATE 8.4% 1 MEQ/ML 50ML SYR IV SCH (12:00)
[2020-06-01 13:42] LABS: NUCLEATED RED BLOOD CELLS 2 /100 WBC; PLATELET ESTIMATE NORMAL
[2020-06-01] MEDS: MIDODRINE HCL 5MG TABLET PO SCH ×2 (13:42→21:08)
[2020-06-01] MEDS: MEROPENEM 1,000 MG in SODIUM CHLORIDE 0.9% 100 ML IV SCH ×2 (13:42→21:07)
[2020-06-01 16:35] LABS: BG BASE EXCESS 0.5 mmol/L (-2.0-2.0); BG CARBOXYHEMOGLOBIN 0.3 % (0.5-1.5); BG DEOXYHEMOGLOBIN 0.9 % (0.0-5.0); BG FRACTION INSPIRED OXYGEN 100; BG HCO3 ACT 24.2 mmol/L (22.0-26.0); BG METHEMOGLOBIN 0.4 % (0.0-1.5); BG OXYGEN SATURATION 99.1 % (92.0-98.5); BG OXYHEMOGLOBIN 98.4 % (94.0-97.0); BG PCO2 34.9 mmHg (35.0-45.0); BG PH 7.459 (7.350-7.450); BG PO2 173.6 mmHg (75.0-100.0); BG SAMPLE SITE LEFT BRACHIAL; BG TOTAL RESPIRATORY RATE 30 b/min; BG VENT MODE VENT - AC
[2020-06-01] MEDS ORDERED: DEXT 5%/0.45% NACL 1000ML 1,000 ML IV SCH (17:00)
[2020-06-01] MEDS ORDERED: SODIUM POLYSTYRENE SULFONATE 15 G/60 ML BOT PO NR (17:10)
[2020-06-01] MEDS: DEXT 5%/0.45% NACL 1000ML 1,000 ML IV SCH (17:15)
[2020-06-01] MEDS: ACETAMINOPHEN 325MG TABLET PO PRN (17:21)
[2020-06-02] VITALS (95 sets, daily range): BP systolic 86–137; BP diastolic 51–82
[2020-06-02] MEDS: DEXT 5%/0.45% NACL 1000ML 1,000 ML IV SCH ×3 (03:35→23:32)
[2020-06-02] MEDS: MIDODRINE HCL 5MG TABLET PO SCH ×3 (05:53→21:39)
[2020-06-02 06:10] LABS: CHLORIDE 115 mEq/L (98-107)
[2020-06-02 06:14] LABS: HEMATOCRIT. 23.9 % (42.0-52.0); HEMOGLOBIN. 7.6 g/dL (14.0-18.0); MEAN CORPUSCULAR HEMOGLOBIN 28.6 pg (28.0-32.0); MEAN CORPUSCULAR VOLUME 89.7 fL (80.0-94.0); MEAN PLATELET VOLUME 8.3 fl (7.4-10.4); PLATELET 221 x1000/uL (130-400); RED BLOOD CELL COUNT 2.66 mill/uL (4.7-6.1)
[2020-06-02 06:19] LABS: PHOSPHORUS 4.2 mg/dL (2.5-4.9)
[2020-06-02] MEDS: MEROPENEM 1,000 MG in SODIUM CHLORIDE 0.9% 100 ML IV SCH (07:53)
[2020-06-02] MEDS: NYSTATIN POWDER 15GM TOP SCH ×2 (09:00→17:00)
[2020-06-02] MEDS: SODIUM HYPOCHLORITE 0.125% 473ML SOLUTION TOP SCH (09:00)
[2020-06-02 09:37] LABS: BG BASE EXCESS 4.2 mmol/L (-2.0-2.0); BG CARBOXYHEMOGLOBIN 0.3 % (0.5-1.5); BG DEOXYHEMOGLOBIN 0.6 % (0.0-5.0); BG FRACTION INSPIRED OXYGEN 85; BG HCO3 ACT 27.8 mmol/L (22.0-26.0); BG METHEMOGLOBIN 0.5 % (0.0-1.5); BG OXYGEN SATURATION 99.4 % (92.0-98.5); BG OXYHEMOGLOBIN 98.6 % (94.0-97.0); BG PCO2 37.4 mmHg (35.0-45.0); BG PH 7.489 (7.350-7.450); BG PO2 250.6 mmHg (75.0-100.0); BG SAMPLE SITE RIGHT RADIAL; BG TOTAL HEMOGLOBIN 7.8 g/dL (12.0-18.0); BG VENT MODE VENT - AC
[2020-06-02] MEDS: PANTOPRAZOLE SODIUM 40 MG/VIAL IV SCH (10:23)
[2020-06-02] MEDS: DOCUSATE SODIUM SUGAR FREE 100MG/10ML UDC GT SCH (10:23)
[2020-06-02] MEDS: ASCORBIC ACID 500 MG TABLET PO SCH (10:24)
[2020-06-02] MEDS: DEXAMETHASONE 10 MG/ML VIAL IV SCH (10:24)
[2020-06-02] MEDS: ZINC SULFATE 220 MG ( 50 ) CAPSULE PO SCH (10:24)
[2020-06-02] MEDS: FENTANYL CITRATE/PF 2,500 MCG in SODIUM CHLORIDE 0.9% 200 ML IV PRN (10:53)
[2020-06-02] MEDS ORDERED: MEROPENEM 1,000 MG in SODIUM CHLORIDE 0.9% 50 ML IV SCH (12:56)
[2020-06-02 13:20] LABS: PLATELET ESTIMATE NORMAL
[2020-06-02] MEDS ORDERED: IPRATROPIUM/ALBUTEROL 0.5-3(2.5)MG/3ML NEB HHN PRN (14:00)
[2020-06-02] MEDS: IPRATROPIUM/ALBUTEROL 0.5-3(2.5)MG/3ML NEB HHN SCH (20:52)
[2020-06-02] MEDS: MEROPENEM 1,000 MG in SODIUM CHLORIDE 0.9% 50 ML IV SCH (21:39)
[2020-06-03] VITALS (101 sets, daily range): BP systolic 71–149; BP diastolic 44–97
[2020-06-03] MEDS: IPRATROPIUM/ALBUTEROL 0.5-3(2.5)MG/3ML NEB HHN SCH ×4 (02:44→21:10)
[2020-06-03 06:09] LABS: CHLORIDE 112 mEq/L (98-107)
[2020-06-03 06:13] LABS: MEAN CORPUSCULAR VOLUME 89.9 fL (80.0-94.0); MEAN PLATELET VOLUME 9.3 fl (7.4-10.4); PLATELET 133 x1000/uL (130-400); RED BLOOD CELL COUNT 2.18 mill/uL (4.7-6.1); RED CELL DISTRIBUTION WIDTH 19.6 % (11.6-14.6)
[2020-06-03 06:21] LABS: HEMOGLOBIN. 6.5 g/dL (14.0-18.0)
[2020-06-03 06:22] LABS: HEMATOCRIT. 19.6 % (42.0-52.0)
[2020-06-03] MEDS: LEVOTHYROXINE SODIUM 50MCG TABLET PO SCH (06:32)
[2020-06-03] MEDS: MIDODRINE HCL 5MG TABLET PO SCH ×3 (06:32→22:03)
[2020-06-03] MEDS: MEROPENEM 1,000 MG in SODIUM CHLORIDE 0.9% 50 ML IV SCH ×3 (06:34→22:04)
[2020-06-03] MEDS ORDERED: POTASSIUM CHLORIDE 20MEQ TABLET SR PO NR (07:45)
[2020-06-03] MEDS: DOCUSATE SODIUM SUGAR FREE 100MG/10ML UDC GT SCH (08:43)
[2020-06-03] MEDS: DEXAMETHASONE 10 MG/ML VIAL IV SCH (08:43)
[2020-06-03] MEDS: ZINC SULFATE 220 MG ( 50 ) CAPSULE PO SCH (08:43)
[2020-06-03] MEDS: PANTOPRAZOLE SODIUM 40 MG/VIAL IV SCH (08:43)
[2020-06-03] MEDS: ASCORBIC ACID 500 MG TABLET PO SCH (08:43)
[2020-06-03] MEDS: NYSTATIN POWDER 15GM TOP SCH ×2 (08:44→16:52)
[2020-06-03] MEDS: SODIUM HYPOCHLORITE 0.125% 473ML SOLUTION TOP SCH (08:44)
[2020-06-03 09:55] LABS: BG BASE EXCESS 0.5 mmol/L (-2.0-2.0); BG CARBOXYHEMOGLOBIN 0.4 % (0.5-1.5); BG FRACTION INSPIRED OXYGEN 60; BG HCO3 ACT 25.4 mmol/L (22.0-26.0); BG METHEMOGLOBIN 0.2 % (0.0-1.5); BG OXYHEMOGLOBIN 92.4 % (94.0-97.0); BG PCO2 42.4 mmHg (35.0-45.0); BG PH 7.396 (7.350-7.450); BG PO2 68.1 mmHg (75.0-100.0); BG SAMPLE SITE RIGHT RADIAL; BG TOTAL HEMOGLOBIN 5.9 g/dL (12.0-18.0); BG VENT MODE VENT - AC
[2020-06-03] MEDS: DEXT 5%/0.45% NACL 1000ML 1,000 ML IV SCH ×2 (11:30→22:44)
[2020-06-03 17:32] LABS: PLATELET ESTIMATE NORMAL
[2020-06-04] VITALS (71 sets, daily range): BP systolic 94–138; BP diastolic 50–75
[2020-06-04] MEDS: FENTANYL CITRATE/PF 2,500 MCG in SODIUM CHLORIDE 0.9% 200 ML IV PRN (02:50)
[2020-06-04] MEDS: IPRATROPIUM/ALBUTEROL 0.5-3(2.5)MG/3ML NEB HHN SCH ×6 (02:51→23:58)
[2020-06-04 05:58] LABS: CHLORIDE 116 mEq/L (98-107); HEMATOCRIT. 24.6 % (42.0-52.0); HEMOGLOBIN. 8.3 g/dL (14.0-18.0); MEAN CORPUSCULAR HEMOGLOBIN 30.4 pg (28.0-32.0); MEAN CORPUSCULAR VOLUME 89.7 fL (80.0-94.0); PLATELET 108 x1000/uL (130-400); RED BLOOD CELL COUNT 2.75 mill/uL (4.7-6.1); RED CELL DISTRIBUTION WIDTH 16.7 % (11.6-14.6)
[2020-06-04] MEDS: DEXT 5%/0.45% NACL 1000ML 1,000 ML IV SCH ×2 (06:46→15:34)
[2020-06-04] MEDS: MEROPENEM 1,000 MG in SODIUM CHLORIDE 0.9% 50 ML IV SCH ×2 (06:54→13:34)
[2020-06-04] MEDS: LEVOTHYROXINE SODIUM 50MCG TABLET PO SCH (06:54)
[2020-06-04] MEDS: MIDODRINE HCL 5MG TABLET PO SCH ×3 (06:54→22:07)
[2020-06-04] MEDS: DOCUSATE SODIUM SUGAR FREE 100MG/10ML UDC GT SCH (08:20)
[2020-06-04] MEDS: DEXAMETHASONE 10 MG/ML VIAL IV SCH (08:21)
[2020-06-04] MEDS: ZINC SULFATE 220 MG ( 50 ) CAPSULE PO SCH (08:21)
[2020-06-04] MEDS: FAMOTIDINE 20MG/2ML VIAL IV SCH ×2 (08:21→22:06)
[2020-06-04] MEDS: ASCORBIC ACID 500 MG TABLET PO SCH (08:21)
[2020-06-04] MEDS: SODIUM HYPOCHLORITE 0.125% 473ML SOLUTION TOP SCH (08:22)
[2020-06-04 10:23] LABS: BG BASE EXCESS 2.8 mmol/L (-2.0-2.0); BG CARBOXYHEMOGLOBIN 0.3 % (0.5-1.5); BG DEOXYHEMOGLOBIN 0.9 % (0.0-5.0); BG FRACTION INSPIRED OXYGEN 60; BG HCO3 ACT 28.3 mmol/L (22.0-26.0); BG METHEMOGLOBIN 0.3 % (0.0-1.5); BG OXYGEN SATURATION 99.1 % (92.0-98.5); BG OXYHEMOGLOBIN 98.5 % (94.0-97.0); BG PCO2 48.3 mmHg (35.0-45.0); BG PH 7.385 (7.350-7.450); BG SAMPLE SITE RIGHT RADIAL; BG TOTAL HEMOGLOBIN 8.5 g/dL (12.0-18.0); BG TOTAL RESPIRATORY RATE 21 b/min; BG VENT MODE VENT - AC
[2020-06-04 13:40] LABS: NUCLEATED RED BLOOD CELLS 3 /100 WBC; PLATELET ESTIMATE SLIGHTLY DECREASED
[2020-06-04] MEDS: CEFEPIME 2,000 MG in DEXT 5% WATER 100 ML IV SCH (18:41)
[2020-06-05] VITALS (93 sets, daily range): BP systolic 84–137; BP diastolic 39–74
[2020-06-05] MEDS: CEFEPIME 2,000 MG in DEXT 5% WATER 100 ML IV SCH ×3 (02:15→18:24)
[2020-06-05] MEDS: DEXT 5%/0.45% NACL 1000ML 1,000 ML IV SCH ×3 (02:16→22:14)
[2020-06-05] MEDS: IPRATROPIUM/ALBUTEROL 0.5-3(2.5)MG/3ML NEB HHN SCH ×6 (04:00→20:05)
[2020-06-05 05:01] LABS: HEMATOCRIT. 23.7 % (42.0-52.0); HEMOGLOBIN. 7.9 g/dL (14.0-18.0); MEAN CORPUSCULAR HEMOGLOBIN 30.2 pg (28.0-32.0); MEAN CORPUSCULAR VOLUME 90.4 fL (80.0-94.0); MEAN PLATELET VOLUME 9.3 fl (7.4-10.4); PLATELET 119 x1000/uL (130-400); RED BLOOD CELL COUNT 2.62 mill/uL (4.7-6.1); RED CELL DISTRIBUTION WIDTH 16.8 % (11.6-14.6)
[2020-06-05 05:33] LABS: CHLORIDE 113 mEq/L (98-107)
[2020-06-05] MEDS: MIDODRINE HCL 5MG TABLET PO SCH ×3 (05:52→22:00)
[2020-06-05] MEDS: LEVOTHYROXINE SODIUM 50MCG TABLET PO SCH (05:52)
[2020-06-05] MEDS: DOCUSATE SODIUM SUGAR FREE 100MG/10ML UDC GT SCH (09:02)
[2020-06-05] MEDS: SODIUM HYPOCHLORITE 0.125% 473ML SOLUTION TOP SCH (09:03)
[2020-06-05] MEDS: DEXAMETHASONE 10 MG/ML VIAL IV SCH (09:03)
[2020-06-05] MEDS: FAMOTIDINE 20MG/2ML VIAL IV SCH ×2 (09:03→22:00)
[2020-06-05 09:56] LABS: BG BASE EXCESS -0.2 mmol/L (-2.0-2.0); BG CARBOXYHEMOGLOBIN 0.3 % (0.5-1.5); BG DEOXYHEMOGLOBIN 0.9 % (0.0-5.0); BG FRACTION INSPIRED OXYGEN 40; BG HCO3 ACT 23.4 mmol/L (22.0-26.0); BG METHEMOGLOBIN 0.1 % (0.0-1.5); BG OXYGEN SATURATION 99.1 % (92.0-98.5); BG OXYHEMOGLOBIN 98.7 % (94.0-97.0); BG PCO2 33.9 mmHg (35.0-45.0); BG PH 7.457 (7.350-7.450); BG PO2 208.2 mmHg (75.0-100.0); BG SAMPLE SITE RIGHT RADIAL; BG TOTAL HEMOGLOBIN 8.7 g/dL (12.0-18.0); BG VENT MODE VENT - AC
[2020-06-05 10:00] LABS: PLATELET ESTIMATE DECREASED
[2020-06-05 19:12] LABS: T4 FREE 0.9 ng/dL (0.76-1.46)
[2020-06-05 19:27] LABS: FOLIC ACID (FOLATE) SERUM 3.4 ng/mL (>5.38)
[2020-06-05] MEDS: MORPHINE SULFATE 2 MG/ML CPJ (NOT FOR IM USE) IV PRN (22:43)
[2020-06-06] VITALS (115 sets, daily range): BP systolic 59–170; BP diastolic 27–94
[2020-06-06] MEDS: NOREPINEPHRINE 32 MG in SODIUM CHLORIDE 0.9% 218 ML IV PRN ×2 (00:07→23:39)
[2020-06-06] MEDS: LORAZEPAM 2MG/ML CPJ IV PRN ×2 (00:32→22:23)
[2020-06-06] MEDS: IPRATROPIUM/ALBUTEROL 0.5-3(2.5)MG/3ML NEB HHN SCH ×5 (00:35→20:43)
[2020-06-06] MEDS: CEFEPIME 2,000 MG in DEXT 5% WATER 100 ML IV SCH ×3 (01:10→19:11)
[2020-06-06] MEDS: LEVOTHYROXINE SODIUM 50MCG TABLET PO SCH (05:49)
[2020-06-06] MEDS: MIDODRINE HCL 5MG TABLET PO SCH ×3 (05:50→21:03)
[2020-06-06] MEDS: ACETAMINOPHEN 325MG TABLET PO PRN ×3 (05:51→17:38)
[2020-06-06 06:13] LABS: HEMATOCRIT. 22.9 % (42.0-52.0); HEMOGLOBIN. 7.4 g/dL (14.0-18.0); MEAN CORPUSCULAR HEMOGLOBIN 29.9 pg (28.0-32.0); MEAN CORPUSCULAR VOLUME 92.1 fL (80.0-94.0); MEAN PLATELET VOLUME 9.9 fl (7.4-10.4); PLATELET 166 x1000/uL (130-400); RED BLOOD CELL COUNT 2.48 mill/uL (4.7-6.1); RED CELL DISTRIBUTION WIDTH 17.3 % (11.6-14.6)
[2020-06-06 06:16] LABS: CHLORIDE 113 mEq/L (98-107)
[2020-06-06] MEDS: DEXT 5%/0.45% NACL 1000ML 1,000 ML IV SCH ×2 (09:31→23:22)
[2020-06-06] MEDS: DEXAMETHASONE 10 MG/ML VIAL IV SCH (09:32)
[2020-06-06] MEDS: FAMOTIDINE 20MG/2ML VIAL IV SCH ×2 (09:32→20:47)
[2020-06-06] MEDS: SODIUM HYPOCHLORITE 0.125% 473ML SOLUTION TOP SCH (09:32)
[2020-06-06 13:21] LABS: PLATELET ESTIMATE NORMAL
[2020-06-06] MEDS: DOCUSATE SODIUM SUGAR FREE 100MG/10ML UDC GT SCH (13:36)
[2020-06-06] MEDS ORDERED: ACETAMINOPHEN 650MG SUPP PR PRN ×2 (20:15→23:45)
[2020-06-06 21:22] LABS: CLARITY URINE TURBID (CLEAR); COLOR URINE YELLOW (YELLOW); KETONES URINE NEGATIVE (NEGATIVE); LEUKOCYTE ESTERASE URINE 2+ (NEGATIVE); NITRITE URINE NEGATIVE (NEGATIVE); OCCULT BLOOD URINE 2+ (NEGATIVE); PH URINE 6.5 (4.5-8.0); PROTEIN URINE 1+ (NEGATIVE); SPECIFIC GRAVITY URINE 1.013 (1.005-1.030); UROBILINOGEN URINE 0.2 E.U./dL (0.2-1.0)
[2020-06-06] MEDS: PHENYLEPHRINE 100 MG in SODIUM CHLORIDE 0.9% 240 ML IV PRN (22:47)
[2020-06-06] MEDS: MORPHINE SULFATE 2 MG/ML CPJ (NOT FOR IM USE) IV PRN (23:22)
[2020-06-06 23:43] LABS: BG BASE EXCESS -3.4 mmol/L (-2.0-2.0); BG CARBOXYHEMOGLOBIN 0.3 % (0.5-1.5); BG DEOXYHEMOGLOBIN 2.6 % (0.0-5.0); BG FRACTION INSPIRED OXYGEN 35; BG HCO3 ACT 21.1 mmol/L (22.0-26.0); BG METHEMOGLOBIN 0.5 % (0.0-1.5); BG OXYGEN SATURATION 97.4 % (92.0-98.5); BG OXYHEMOGLOBIN 96.6 % (94.0-97.0); BG PH 7.399 (7.350-7.450); BG PO2 106.9 mmHg (75.0-100.0); BG SAMPLE SITE RIGHT RADIAL; BG TOTAL HEMOGLOBIN 5.8 g/dL (12.0-18.0); BG TOTAL RESPIRATORY RATE 34 b/min; BG VENT MODE VENT - AC
[2020-06-07] VITALS (113 sets, daily range): BP systolic 66–185; BP diastolic 36–79
[2020-06-07] MEDS: PROPOFOL 10MG/ML 100ML 100 ML IV PRN ×2 (00:19→12:13)
[2020-06-07 00:50] LABS: HEMATOCRIT 15.3 % (42.0-52.0); HEMOGLOBIN 4.9 g/dL (14.0-18.0)
[2020-06-07] MEDS: IPRATROPIUM/ALBUTEROL 0.5-3(2.5)MG/3ML NEB HHN SCH ×4 (02:35→21:06)
[2020-06-07] MEDS: CEFEPIME 2,000 MG in DEXT 5% WATER 100 ML IV SCH ×3 (03:01→16:22)
[2020-06-07] MEDS: MIDODRINE HCL 5MG TABLET PO SCH ×3 (05:30→21:03)
[2020-06-07] MEDS: LEVOTHYROXINE SODIUM 50MCG TABLET PO SCH (05:30)
[2020-06-07 09:17] LABS: HEMATOCRIT. 26.6 % (42.0-52.0); HEMOGLOBIN. 8.6 g/dL (14.0-18.0); MEAN CORPUSCULAR HEMOGLOBIN 28.4 pg (28.0-32.0); MEAN CORPUSCULAR VOLUME 88.3 fL (80.0-94.0); MEAN PLATELET VOLUME 10.3 fl (7.4-10.4); PLATELET 270 x1000/uL (130-400); RED BLOOD CELL COUNT 3.02 mill/uL (4.7-6.1); RED CELL DISTRIBUTION WIDTH 16.2 % (11.6-14.6)
[2020-06-07 09:35] LABS: CHLORIDE 118 mEq/L (98-107)
[2020-06-07] MEDS: FAMOTIDINE 20MG/2ML VIAL IV SCH ×2 (10:09→20:58)
[2020-06-07] MEDS: DEXAMETHASONE 10 MG/ML VIAL IV SCH (10:10)
[2020-06-07 10:42] LABS: BG BASE EXCESS -9.3 mmol/L (-2.0-2.0); BG CARBOXYHEMOGLOBIN 0.3 % (0.5-1.5); BG DEOXYHEMOGLOBIN 3.3 % (0.0-5.0); BG HCO3 ACT 16.6 mmol/L (22.0-26.0); BG METHEMOGLOBIN 0.3 % (0.0-1.5); BG OXYGEN SATURATION 96.7 % (92.0-98.5); BG OXYHEMOGLOBIN 96.1 % (94.0-97.0); BG PCO2 36.4 mmHg (35.0-45.0); BG PH 7.278 (7.350-7.450); BG PO2 104.6 mmHg (75.0-100.0); BG SAMPLE SITE LEFT RADIAL; BG TOTAL HEMOGLOBIN 9.2 g/dL (12.0-18.0); BG VENT MODE VENT - AC
[2020-06-07 11:25] LABS: PLATELET ESTIMATE NORMAL
[2020-06-07] MEDS: DOCUSATE SODIUM SUGAR FREE 100MG/10ML UDC GT SCH (11:41)
[2020-06-07] MEDS ORDERED: SODIUM BICARBONATE 8.4% 1 MEQ/ML 50ML SYR IV ONE (13:00)
[2020-06-07 13:26] LABS: HEMATOCRIT 24.2 % (42.0-52.0); HEMOGLOBIN 8.1 g/dL (14.0-18.0); MEAN CORPUSCULAR HEMOGLOBIN 29.5 pg (28.0-32.0); MEAN CORPUSCULAR VOLUME 87.8 fL (80.0-94.0); PLATELET 246 x1000/uL (130-400); RED BLOOD CELL COUNT 2.76 mill/uL (4.7-6.1); RED CELL DISTRIBUTION WIDTH 15.8 % (11.6-14.6)
[2020-06-07] MEDS ORDERED: VANCOMYCIN 1 G PREMIX 200 ML IV SCH ×2 (16:00)
[2020-06-07] MEDS: PHENYLEPHRINE 100 MG in SODIUM CHLORIDE 0.9% 240 ML IV PRN (16:30)
[2020-06-07] MEDS: DEXT 5%/0.45% NACL 1000ML 1,000 ML IV SCH (20:58)
[2020-06-07] MEDS ORDERED: PROPOFOL 10MG/ML 100ML 100 ML IV PRN (23:30)
[2020-06-08] VITALS (101 sets, daily range): BP systolic 88–147; BP diastolic 39–114
[2020-06-08] MEDS: IPRATROPIUM/ALBUTEROL 0.5-3(2.5)MG/3ML NEB HHN SCH ×5 (00:29→22:15)
[2020-06-08] MEDS: CEFEPIME 2,000 MG in DEXT 5% WATER 100 ML IV SCH ×3 (02:03→18:05)
[2020-06-08 05:27] LABS: MEAN CORPUSCULAR HEMOGLOBIN 28.8 pg (28.0-32.0); MEAN CORPUSCULAR VOLUME 88.9 fL (80.0-94.0); MEAN PLATELET VOLUME 10.5 fl (7.4-10.4); PLATELET 328 x1000/uL (130-400); RED BLOOD CELL COUNT 2.28 mill/uL (4.7-6.1); RED CELL DISTRIBUTION WIDTH 16.6 % (11.6-14.6)
[2020-06-08] MEDS: LEVOTHYROXINE SODIUM 50MCG TABLET PO SCH (05:46)
[2020-06-08] MEDS: MIDODRINE HCL 5MG TABLET PO SCH ×3 (05:47→21:33)
[2020-06-08 05:55] LABS: CHLORIDE 119 mEq/L (98-107)
[2020-06-08 06:00] LABS: HEMATOCRIT. 20.3 % (42.0-52.0); HEMOGLOBIN. 6.6 g/dL (14.0-18.0)
[2020-06-08] MEDS: PHENYLEPHRINE 100 MG in SODIUM CHLORIDE 0.9% 240 ML IV PRN ×2 (08:23→21:33)
[2020-06-08] MEDS: DOCUSATE SODIUM SUGAR FREE 100MG/10ML UDC GT SCH (09:19)
[2020-06-08] MEDS: FAMOTIDINE 20MG/2ML VIAL IV SCH (09:20)
[2020-06-08 10:41] LABS: PLATELET ESTIMATE NORMAL
[2020-06-08 14:12] LABS: BG BASE EXCESS -7.1 mmol/L (-2.0-2.0); BG CARBOXYHEMOGLOBIN 0.7 % (0.5-1.5); BG DEOXYHEMOGLOBIN 2.1 % (0.0-5.0); BG FRACTION INSPIRED OXYGEN 35; BG HCO3 ACT 18.9 mmol/L (22.0-26.0); BG OXYGEN SATURATION 97.9 % (92.0-98.5); BG OXYHEMOGLOBIN 97.2 % (94.0-97.0); BG PCO2 40.5 mmHg (35.0-45.0); BG PH 7.288 (7.350-7.450); BG PO2 117.3 mmHg (75.0-100.0); BG SAMPLE SITE RIGHT RADIAL; BG TOTAL HEMOGLOBIN 9.4 g/dL (12.0-18.0); BG VENT MODE VENT - AC
[2020-06-08] MEDS: VANCOMYCIN 750 MG PREMIX 150 ML IV SCH (14:22)
[2020-06-08] MEDS: PANTOPRAZOLE SODIUM 40 MG/VIAL IV SCH ×2 (14:23→21:33)
[2020-06-08] MEDS: PROPOFOL 10MG/ML 100ML 100 ML IV PRN (15:13)
[2020-06-08] MEDS: DEXT 5%/0.45% NACL 1000ML 1,000 ML IV SCH (16:58)
[2020-06-08] MEDS: SUCRALFATE 1 G/10 ML UDC PO SCH ×2 (17:06→21:32)
[2020-06-08 17:26] LABS: HEMATOCRIT 29.3 % (42.0-52.0); HEMOGLOBIN 9.6 g/dL (14.0-18.0)
[2020-06-08] MEDS ORDERED: MORPHINE SULFATE 4 MG/ML CPJ (NOT FOR IM USE) IV PRN (22:00)
[2020-06-08] MEDS ORDERED: LORAZEPAM 2MG/ML CPJ IV PRN (22:00)
[2020-06-08 23:59] LABS: HEMATOCRIT 25.5 % (42.0-52.0); HEMOGLOBIN 8.6 g/dL (14.0-18.0)
[2020-06-09] VITALS (97 sets, daily range): BP systolic 77–134; BP diastolic 30–74
[2020-06-09] MEDS: DOPAMINE 800MG PREMIX (DOUBLE) 250 ML IV PRN (00:12)
[2020-06-09] MEDS: IPRATROPIUM/ALBUTEROL 0.5-3(2.5)MG/3ML NEB HHN SCH ×5 (00:20→20:20)
[2020-06-09] MEDS: CEFEPIME 2,000 MG in DEXT 5% WATER 100 ML IV SCH ×3 (01:30→18:20)
[2020-06-09] MEDS: PROPOFOL 10MG/ML 100ML 100 ML IV PRN (01:31)
[2020-06-09] MEDS ORDERED: MORPHINE SULFATE 4 MG/ML CPJ (NOT FOR IM USE) IV PRN (04:00)
[2020-06-09] MEDS: SUCRALFATE 1 G/10 ML UDC PO SCH ×4 (05:30→21:16)
[2020-06-09] MEDS: LEVOTHYROXINE SODIUM 50MCG TABLET PO SCH (05:31)
[2020-06-09] MEDS: MIDODRINE HCL 5MG TABLET PO SCH ×3 (05:31→21:17)
[2020-06-09 06:12] LABS: HEMATOCRIT. 27.8 % (42.0-52.0); HEMOGLOBIN. 9.3 g/dL (14.0-18.0); MEAN CORPUSCULAR HEMOGLOBIN 29.7 pg (28.0-32.0); MEAN CORPUSCULAR VOLUME 88.8 fL (80.0-94.0); MEAN PLATELET VOLUME 11.4 fl (7.4-10.4); PLATELET 224 x1000/uL (130-400); RED BLOOD CELL COUNT 3.13 mill/uL (4.7-6.1); RED CELL DISTRIBUTION WIDTH 15.9 % (11.6-14.6)
[2020-06-09 06:40] LABS: HEPATITIS B SURFACE ANTIGEN NEGATIVE
[2020-06-09 06:49] LABS: FERRITIN 1608 ng/mL (22-322)
[2020-06-09 07:10] LABS: HEPATITIS A AB IGM NEGATIVE (NEGATIVE)
[2020-06-09 07:22] LABS: CHLORIDE 121 mEq/L (98-107)
[2020-06-09 07:28] LABS: TOTAL IRON BINDING CAPACITY 221 ug/dL (250-450)
[2020-06-09] MEDS ORDERED: PANTOPRAZOLE SODIUM 40 MG/VIAL IV SCH (09:00)
[2020-06-09] MEDS: VANCOMYCIN 750 MG PREMIX 150 ML IV SCH (09:18)
[2020-06-09] MEDS: PANTOPRAZOLE SODIUM 40 MG/VIAL IV SCH ×2 (09:18→21:17)
[2020-06-09] MEDS: DOCUSATE SODIUM SUGAR FREE 100MG/10ML UDC GT SCH (09:19)
[2020-06-09 09:21] LABS: VITAMIN B12 SERUM 1125 pg/mL (211-911)
[2020-06-09 12:06] LABS: PLATELET ESTIMATE NORMAL
[2020-06-09] MEDS: DEXT 5%/0.45% NACL 1000ML 1,000 ML IV SCH ×2 (12:18→16:54)
[2020-06-10] VITALS (93 sets, daily range): BP systolic 74–138; BP diastolic 43–83
[2020-06-10] MEDS: IPRATROPIUM/ALBUTEROL 0.5-3(2.5)MG/3ML NEB HHN SCH ×5 (00:20→20:44)
[2020-06-10] MEDS: DOPAMINE 800MG PREMIX (DOUBLE) 250 ML IV PRN ×2 (01:34→13:13)
[2020-06-10] MEDS: VANCOMYCIN 750 MG PREMIX 150 ML IV SCH ×2 (01:38→21:19)
[2020-06-10] MEDS: MIDODRINE HCL 5MG TABLET PO SCH ×3 (06:06→21:28)
[2020-06-10] MEDS: SUCRALFATE 1 G/10 ML UDC PO SCH ×4 (06:06→21:19)
[2020-06-10] MEDS: LEVOTHYROXINE SODIUM 50MCG TABLET PO SCH (06:06)
[2020-06-10 06:16] LABS: CHLORIDE 125 mEq/L (98-107)
[2020-06-10 07:01] LABS: HEMATOCRIT. 25.8 % (42.0-52.0); HEMOGLOBIN. 8.3 g/dL (14.0-18.0); MEAN CORPUSCULAR VOLUME 89.9 fL (80.0-94.0); MEAN PLATELET VOLUME 11.7 fl (7.4-10.4); PLATELET 256 x1000/uL (130-400); RED BLOOD CELL COUNT 2.87 mill/uL (4.7-6.1); RED CELL DISTRIBUTION WIDTH 15.9 % (11.6-14.6)
[2020-06-10] MEDS: PANTOPRAZOLE SODIUM 40 MG/VIAL IV SCH ×2 (08:28→21:19)
[2020-06-10 09:37] LABS: BG BASE EXCESS -1.6 mmol/L (-2.0-2.0); BG CARBOXYHEMOGLOBIN 0.9 % (0.5-1.5); BG DEOXYHEMOGLOBIN 5.2 % (0.0-5.0); BG FRACTION INSPIRED OXYGEN 35; BG HCO3 ACT 21.4 mmol/L (22.0-26.0); BG METHEMOGLOBIN 0.2 % (0.0-1.5); BG OXYGEN SATURATION 94.7 % (92.0-98.5); BG OXYHEMOGLOBIN 93.7 % (94.0-97.0); BG PCO2 28.7 mmHg (35.0-45.0); BG PH 7.491 (7.350-7.450); BG PO2 71.3 mmHg (75.0-100.0); BG SAMPLE SITE LEFT RADIAL; BG TOTAL HEMOGLOBIN 6.6 g/dL (12.0-18.0); BG VENT MODE VENT - AC
[2020-06-10 11:22] LABS: PLATELET ESTIMATE NORMAL
[2020-06-10] MEDS: CEFEPIME 2,000 MG in DEXT 5% WATER 100 ML IV SCH (17:26)
[2020-06-10] MEDS: DEXT 5%/0.45% NACL 1000ML 1,000 ML IV SCH (17:26)
[2020-06-11] VITALS (80 sets, daily range): BP systolic 56–176; BP diastolic 29–102
[2020-06-11] MEDS: CEFEPIME 2,000 MG in DEXT 5% WATER 100 ML IV SCH ×3 (00:38→17:56)
[2020-06-11] MEDS: IPRATROPIUM/ALBUTEROL 0.5-3(2.5)MG/3ML NEB HHN SCH ×4 (02:00→20:25)
[2020-06-11] MEDS: DOPAMINE 800MG PREMIX (DOUBLE) 250 ML IV PRN (05:15)
[2020-06-11] MEDS: LEVOTHYROXINE SODIUM 50MCG TABLET PO SCH (06:14)
[2020-06-11] MEDS: SUCRALFATE 1 G/10 ML UDC PO SCH ×4 (06:14→21:10)
[2020-06-11] MEDS: MIDODRINE HCL 5MG TABLET PO SCH ×3 (06:15→21:54)
[2020-06-11] MEDS: PANTOPRAZOLE SODIUM 40 MG/VIAL IV SCH ×2 (09:33→21:10)
[2020-06-11] MEDS: VANCOMYCIN 750 MG PREMIX 150 ML IV SCH (14:31)
[2020-06-11] MEDS: DEXT 5%/0.45% NACL 1000ML 1,000 ML IV SCH (17:54)
[2020-06-12] VITALS (55 sets, daily range): BP systolic 52–142; BP diastolic 23–72
[2020-06-12] MEDS: CEFEPIME 2,000 MG in DEXT 5% WATER 100 ML IV SCH ×2 (00:33→11:45)
[2020-06-12] MEDS: IPRATROPIUM/ALBUTEROL 0.5-3(2.5)MG/3ML NEB HHN SCH ×3 (02:49→12:07)
[2020-06-12] MEDS: DOPAMINE 800MG PREMIX (DOUBLE) 250 ML IV PRN (05:26)
[2020-06-12] MEDS: MIDODRINE HCL 5MG TABLET PO SCH (05:44)
[2020-06-12] MEDS: SUCRALFATE 1 G/10 ML UDC PO SCH ×2 (06:45→11:45)
[2020-06-12] MEDS: LEVOTHYROXINE SODIUM 50MCG TABLET PO SCH (06:46)
[2020-06-12] MEDS: PANTOPRAZOLE SODIUM 40 MG/VIAL IV SCH (11:45)
[2020-06-12] MEDS: MORPHINE SULFATE 250 MG in DEXT 5% WATER 225 ML IV PRN ×2 (14:48→20:43)
[2020-06-12 17:48] LABS: CHLORIDE 128 mEq/L (98-107)
== END 2020-06-12 22:28 | disposition expired | DRG 710 ==
LOC: ER 01:12 → 7WST 03:52 → ENRESERV 09:54 → 6WST 05-05 22:20 → 6EST 05-09 17:34 → 7WST 05-14 11:24 → 6WST 05-27 20:43 → 7WST 05-28 12:39 → MICUNO 06-01 07:34
PROVIDERS: ADMIT Internal Medicine; ATTEND Internal Medicine
PROC: 0QB10ZZ Excision of Sacrum, Open Approach (ICD-10-PCS; principal; 2020-05-08)
PROC: 5A1955Z Respiratory Ventilation, Greater than 96 Consecutive Hours (ICD-10-PCS; 2020-06-01)
PROC: 06HY33Z Insertion of Infusion Device into Lower Vein, Percutaneous Approach (ICD-10-PCS; 2020-06-01)
PROC: 30233N1 Transfusion of Nonautologous Red Blood Cells into Peripheral Vein, Percutaneous Approach (ICD-10-PCS; 2020-06-03)
DX: A41.89 Other specified sepsis (principal); L89.154 Pressure ulcer of sacral region, stage 4; D64.9 Anemia, unspecified; E87.1 Hypo-osmolality and hyponatremia; G82.50 Quadriplegia, unspecified; K56.7 Ileus, unspecified; N39.0 Urinary tract infection, site not specified; L85.3 Xerosis cutis; S90.822A Blister (nonthermal), left foot, initial encounter; E87.6 Hypokalemia; E43 Unspecified severe protein-calorie malnutrition; J12.82 Pneumonia due to coronavirus disease 2019; J96.20 Acute and chronic respiratory failure, unspecified whether with hypoxia or hypercapnia; R65.21 Severe sepsis with septic shock; X58.XXXA Exposure to other specified factors, initial encounter; I10 Essential (primary) hypertension; G92 Toxic encephalopathy; D69.6 Thrombocytopenia, unspecified; E11.69 Type 2 diabetes mellitus with other specified complication; M86.8X8 Other osteomyelitis, other site; R26.89 Other abnormalities of gait and mobility; R74.01 Elevation of levels of liver transaminase levels; I46.9 Cardiac arrest, cause unspecified; Z51.5 Encounter for palliative care; D18.03 Hemangioma of intra-abdominal structures; E87.2 Acidosis; K92.2 Gastrointestinal hemorrhage, unspecified; Z66 Do not resuscitate; Z74.01 Bed confinement status; Y93.89 Activity, other specified; Y92.89 Other specified places as the place of occurrence of the external cause; Y99.8 Other external cause status; Z68.23 Body mass index [BMI] 23.0-23.9, adult; Z86.73 Personal history of transient ischemic attack (TIA), and cerebral infarction without residual deficits; Z93.0 Tracheostomy status; Z95.0 Presence of cardiac pacemaker; B96.5 Pseudomonas (aeruginosa) (mallei) (pseudomallei) as the cause of diseases classified elsewhere
CPT/HCPCS: 36415; 36600; 71045; 74178; 76700; 80048; 80053; 80076; 80202; 81003; 82140; 82375; 82550; 82607; 82728; 82746; 82805; 82962; 83036; 83540; 83550; 83605; 83615; 83735; 83880; 84100; 84145; 84439; 84443; 84478; 84481; 84484; 85014; 85018; 85025; 85027; 85379; 85384; 86705; 86709; 86803; 86850; 86900; 86920; 87070; 87077; 87106; 87186; 87340; 87426; 87635; 93005; 93970; 94003; 94640; 94660; 99291; A6261; C9113; J0456; J0692; J0696; J1030; J1100; J1265; J1650; J2060; J2185; J2270; J2370; J2405; J2543; J2704; J3010; J3370; J3480; J3490; J7040; J7050; J7060; J7608; P9016; Q9967; U0003; A4315